=== PATIENT | male | born 1980 | race Two or more races ===

== ENCOUNTER 2019-10-07 19:28 | Emergency (ER) | payer BC ==
--- NOTE | 2019-10-07 19:50 | EDM.PDOC ---
ED HPI GENERAL MEDICAL PROBLEM - General Chief Complaint: Lower Extremity Injury/Pain Stated Complaint: POSSIBLE BLOOD CLOT IN RIGHT LEG Time Seen by Provider: 10/07/19 19:35 Source of Information: Reports: Patient, RN, RN Notes Reviewed History Limitations: Reports: No Limitations - History of Present Illness INITIAL COMMENTS - FREE TEXT/NARRATIVE: Pt to ER with c/o swelling, redness, pain to the right lower leg, anterior andrade just above the ankle. Patient states he began to notice last night but this morning began having quite a bit of pain. States he has sharp pains up the lower leg with plantarflexion and dorsiflexion of the foot. Patient states he has been on his knees frequently the past few days, ripping up carpet and replacing carpet. Patient denies any trauma to the area. Patient denies any history of blood clots, any past health history, denies taking any daily medications. patient states he does drive on a daily basis, no further than 70 miles, and is out of the vehicle and walking frequently. Patient denies any other complaints of. Onset: Today, Sudden Duration: Constant, Getting Worse Location: Reports: Lower Extremity, Right Quality: Reports: Ache, Sharp Severity: Moderate Improves with: Reports: None Worsens with: Reports: None Associated Symptoms: Reports: No Other Symptoms Treatments PSYCHOLOGICAL ANTHROPOLOGIST: Reports: Aspirin Right Lower Leg Pain Score (Numeric/FACES): 5 - Related Data Allergies Allergy/AdvReac Type Severity Reaction Status Date / Time No Known Allergies Allergy Verified 10/07/19 20:13 Home Meds: Home Meds . [No Known Home Meds] 10/07/19 [History] Social & Family History - Tobacco Use Smoking Status *Q: Unknown Ever Smoked Second Hand Smoke Exposure: No - Caffeine Use Caffeine Use: Reports: Coffee, Energy Drinks, Soda - Recreational Drug Use Recreational Drug Use: No Review of Systems - Review of Systems Review Of Systems: Comprehensive ROS is negative, except as noted in HPI. ED EXAM, GENERAL - Physical Exam Exam: See Below Exam Limited By: No Limitations General Appearance: Alert, WD/WN, No Apparent Distress Eye Exam: Bilateral Eye: EOMI, Normal Inspection Ears: Normal External Exam, Hearing Grossly Normal Nose: Normal Inspection Throat/Mouth: Normal Inspection, Normal Voice, No Airway Compromise Head: Atraumatic, Normocephalic Neck: Normal Inspection, Supple, Non-Tender, Full Range of Motion Respiratory/Chest: No Respiratory Distress, Lungs Clear, Normal Breath Sounds, No Accessory Muscle Use, Chest Non-Tender Cardiovascular: Normal Peripheral Pulses, Regular Rate, Rhythm, No Edema, No Gallop, No JVD, No Murmur, No Rub Peripheral Pulses: 2+: Radial (L), Radial (R), Dorsalis Pedis (L), Dorsalis Pedis (R) GI/Abdominal: Normal Bowel Sounds, Soft, Non-Tender, No Organomegaly, No Distention, No Abnormal Bruit, No Mass (Male) Exam: Deferred Rectal (Males) Exam: Deferred Back Exam: Normal Inspection, Full Range of Motion, NT Extremities: Lokesh's Sign (right lower leg), Leg Pain (RLL), Increased Warmth ( RLL anterior, just above ankle) Neurological: Alert, Oriented, CN II-XII Intact, Normal Cognition, Normal Gait, Normal Reflexes, No Motor/Sensory Deficits Psychiatric: Normal Affect, Normal Mood Skin Exam: Warm, Dry, Intact, No Rash, Erythema (RLL anterior, just above ankle) , Increased Warmth (RLL anterior, just above ankle) Lymphatic: No Adenopathy Course - Vital Signs Last Recorded V/S: Last Vital Signs Temp 97.6 F 10/07/19 19:36 Pulse 100 10/07/19 19:36 Resp 18 10/07/19 19:36 BP 160/96 H 10/07/19 19:36 Pulse Ox 98 10/07/19 19:36 - Orders/Labs/Meds Orders: Active Orders 24 hr Category Date Time Status Ankle 2V Rt [CR] Urgent Exams 10/07/19 20:44 Taken Labs: Laboratory Tests 10/07/19 10/07/19 10/07/19 Range/Units 19:50 19:50 19:50 WBC 9.0 (5.0-10.0) 10^3/uL RBC 5.00 (4.6-6.2) 10^6/uL Hgb 15.4 (14.0-18.0) g/dL Hct 44.3 (40.0-54.0) % MCV 88.6 (80-100) fL MCH 30.8 (27.0-34.0) pg MCHC 34.8 (33.0-35.0) g/dL Plt Count 236 (150-450) 10^3/uL Neut % (Auto) 54.8 (42.2-75.2) % Lymph % (Auto) 29.6 (20.5-50.1) % Fountain % (Auto) 11.8 H (2-8) % Eos % (Auto) 3.6 H (1.0-3.0) % Baso % (Auto) 0.2 (0.0-1.0) % ESR 13 (0-15) mm/hr D-Dimer, Quantitative 135 (0-400) ng/mL Sodium 136 (135-145) mmol/L Potassium 3.7 (3.6-5.0) mmol/L Chloride 103 (101-111) mmol/L Carbon Dioxide 24.0 (21.0-31.0) mmol/L Anion Gap 12.7 BUN 13 (7-18) mg/dL Creatinine 1.1 (0.6-1.3) mg/dL Est Cr Clr Drug Dosing 108.83 mL/min Estimated GFR (MDRD) > 60 BUN/Creatinine Ratio 11.81 Glucose 102 (74-105) mg/dL Calcium 8.9 (8.4-10.2) mg/dl Total Bilirubin 0.6 (0.2-1.0) mg/dL AST 21 (10-42) IU/L ALT 22 (10-60) IU/L Alkaline Phosphatase 90 (42-121) IU/L C-Reactive Protein (0.0-1.3) mg/dL Total Protein 8.2 (6.7-8.2) g/dl Albumin 4.1 (3.2-5.5) g/dl Globulin 4.1 Albumin/Globulin Ratio 1.00 10/07/19 Range/Units 19:50 WBC (5.0-10.0) 10^3/uL RBC (4.6-6.2) 10^6/uL Hgb (14.0-18.0) g/dL Hct (40.0-54.0) % MCV (80-100) fL MCH (27.0-34.0) pg MCHC (33.0-35.0) g/dL Plt Count (150-450) 10^3/uL Neut % (Auto) (42.2-75.2) % Lymph % (Auto) (20.5-50.1) % Fountain % (Auto) (2-8) % Eos % (Auto) (1.0-3.0) % Baso % (Auto) (0.0-1.0) % ESR (0-15) mm/hr D-Dimer, Quantitative (0-400) ng/mL Sodium (135-145) mmol/L Potassium (3.6-5.0) mmol/L Chloride (101-111) mmol/L Carbon Dioxide (21.0-31.0) mmol/L Anion Gap BUN (7-18) mg/dL Creatinine (0.6-1.3) mg/dL Est Cr Clr Drug Dosing mL/min Estimated GFR (MDRD) BUN/Creatinine Ratio Glucose (74-105) mg/dL Calcium (8.4-10.2) mg/dl Total Bilirubin (0.2-1.0) mg/dL AST (10-42) IU/L ALT (10-60) IU/L Alkaline Phosphatase (42-121) IU/L C-Reactive Protein 2.2 H (0.0-1.3) mg/dL Total Protein (6.7-8.2) g/dl Albumin (3.2-5.5) g/dl Globulin Albumin/Globulin Ratio - Radiology Interpretation Free Text/Narrative:: Right ankle xray: FINDINGS: Bones/joints: The bones are intact and normal in appearance. There is no evidence of acute or healing fracture. There is no bone destruction or periosteal reaction. The ankle mortise is congruent. There are small posterior and large plantar calcaneal spurs. No ankle joint effusion is identified. Soft tissues: The soft tissues are radiographically unremarkable. IMPRESSION: No acute osseous pathology identified. Small posterior and large plantar calcaneal spurs. Thank you for allowing us to participate in the care of your patient. Dictated and Authenticated by: Natalie Mcbride MD 10/07/2019 9:12 PM Central Time ([place] & [place]) See rad report Departure - Departure Time of Disposition: 21:30 Disposition: Home, Self-Care 01 Condition: Good Clinical Impression: Cellulitis Qualifiers: Site of cellulitis: extremity Site of cellulitis of extremity: lower extremity Laterality: right Qualified Code(s): L03.115 - Cellulitis of right lower limb - Discharge Information *PRESCRIPTION DRUG MONITORING PROGRAM REVIEWED*: No *COPY OF PRESCRIPTION DRUG MONITORING REPORT IN PATIENT PRITESH: No Instructions: Cellulitis, Adult, [id number] Forms: ED Department Discharge Additional Instructions: RX: Cephalexin 500mg orally twice daily for 10 days Monitor for further expanding of the redness and swelling May use Tylenol and/or Ibuprofen as directed for pain Follow up with your primary care facility if no improvement Sepsis Event Note - Evaluation Sepsis Screening Result: No Definite Risk - Focused Exam Vital Signs: Vital Signs Temp Pulse Resp BP Pulse Ox 10/07/19 19:36 97.6 F 100 18 160/96 H 98 Date Exam was Performed: 10/07/19 Time Exam was Performed: 21:13 - My Orders Last 24 Hours: My Active Orders 10/07/19 20:44 Ankle 2V Rt [CR] Urgent - Assessment/Plan Last 24 Hours: My Active Orders 10/07/19 20:44 Ankle 2V Rt [CR] Urgent
[2019-10-07 20:14] LABS: ANION GAP 12.7; CHLORIDE,CL 103 mmol/L (101-111); SODIUM,NA 136 mmol/L (135-145)
[2019-10-07] MEDS ORDERED: Cephalexin 500 MG Cap PO ONE (21:17)
== END 2019-10-07 21:28 | disposition home or self-care (01) ==
LOC: DL.ED 19:28
DX: L03.115 Cellulitis of right lower limb (principal)
CPT/HCPCS: 36415; 73600; 80053; 85025; 85379; 85651; 86140; 99283; A9270